=== PATIENT | male | born 1945 | race Caucasian/White ===

== ENCOUNTER 2016-08-06 13:38 | Inpatient (IN) | payer MEDICARE, OTHER ==
[~2016-08-06] VITALS: Ht 177.8 cm; Wt 137.0 kg
[2016-08-06] VITALS (8 sets, daily range): BP systolic 113–158; BP diastolic 52–88
[~2016-08-06 13:38] MED LIST: ALLO300T PO; AMLO5TAB2 PO; LOSA1TAB17 PO; METF500T4 PO; PRAV20TA2 PO; PROAIR RESPICL90 MCG IH
--- NOTE | 2016-08-06 14:34 | HP ---
ADMIT DATE: 08/06/2016 CHIEF COMPLAINT: Groin abscess. HISTORY OF PRESENT ILLNESS: A 71-year-old white male with known mild diabetes and hypertension, developed pain, swelling and redness in the right upper thigh area about 1 week prior to admission. He was seen on 07/28/2016 with minor pain in the area and told to follow up p.r.n. He was seen again on 08/03/2016 with increasing pain and was placed on doxycycline with cephalexin, but the pain has increased and swelling has increased with small amount of drainage in the medial area of the thigh and some decrease in the pain and pressure area. The area of induration and abscess was too large for outpatient local anesthetic incision and drainage and he is admitted for treatment of the upper thigh abscess. PAST HISTORY: ALLERGIES: No drugs. HOME MEDICATIONS: Include metformin for diabetes with good control, allopurinol, amlodipine, losartan, and pravastatin. He has had no significant surgeries in the past. SOCIAL HISTORY: Nonsmoker, nondrinker, , retired, physically active. FAMILY HISTORY: Unremarkable. REVIEW OF SYSTEMS: No other specific complaints. Diabetic control has been good. The most recent hemoglobin A1c being 7.1 and chemistry profile being unremarkable as well. OBJECTIVE: ENT: All within normal limits. NECK: No masses, nodes or bruits. LUNGS: Clear. CARDIOVASCULAR: Regular rate. No tachycardia or murmur. ABDOMEN: Obese, soft, benign and nontender. EXTREMITIES: There is a large indurated, mildly fluctuant area of abscess in the upper anterior medial right thigh just distal and inferior to the right inguinal fold. There is a scant amount of minimal drainage from pinpoint area of the medial thigh and has small fluctuance present. No adenopathy is noted and no other joint or skin lesions are noted. He has good distal pulses. NEUROLOGIC: Physiologic, nonfocal. GENITOURINARY AND RECTAL: Deferred. ASSESSMENT: Right proximal thigh abscess and otherwise well controlled diabetic, hypertensive. PLAN: Continue IV vancomycin and home meds with surgical consultation for incision and drainage under either general or epidural anesthesia because of the extent of the wound. SARANYA PABLO MD DR: GEOFFREY/bernarda JOB#: [id number] / [id number]
[2016-08-06] MEDS ORDERED: ASCO500T2 PO (15:05)
[2016-08-06] MEDS ORDERED: CYAN10005 PO (15:06)
[2016-08-06] MEDS ORDERED: CEPH-264 PO (15:07)
[2016-08-06] MEDS ORDERED: DOXY100C2 PO (15:07)
[2016-08-06] MEDS ORDERED: VANCOMYCIN 1.5 GM in IV NORMAL SALINE 500ML BAG 500 ML IV SCH (15:30)
[2016-08-06 15:51] LABS: BASO # 0.1 x10^3/uL (0.0-0.2); BASO % 1 % (0-3); EOS % 5 % (0-3); HEMATOCRIT 39.1 % (39.0-53.0); HEMOGLOBIN 12.8 g/dL (13.0-17.5); LYMPH # 1.6 x10^3/uL (1.0-4.8); LYMPH % 16 % (24-48); MEAN CORPUSCULAR HEMOGLOBIN 30 pg (25-35); MEAN CORPUSCULAR HGB CONC 33 g/dL (31-37); MEAN CORPUSCULAR VOLUME 91 fL (79-100); MONO % 6 % (0-9); NEUT % 72 % (31-73); PLATELET COUNT 269 x10^3/uL (140-400); RED BLOOD COUNT 4.32 x10^6/uL (4.30-5.70); RED CELL DISTRIBUTION WIDTH 13.7 % (11.5-14.5); WHITE BLOOD COUNT 10.2 x10^3/uL (4.0-11.0)
[2016-08-06] MEDS: ALLOPURINOL 300 MG TABLET. PO SCH (16:00)
[2016-08-06] MEDS: AMLODIPINE BESYLATE 5 MG TABLET PO SCH (16:00)
[2016-08-06] MEDS: LOSARTAN POTASSIUM 50 MG TABLET. PO SCH (16:00)
[2016-08-06] MEDS: ASCORBIC ACID 500 MG TABLET PO SCH (16:00)
[2016-08-06] MEDS ORDERED: VANCOMYCIN 2 GM in IV NORMAL SALINE 500ML BAG 500 ML IV ONE (16:00)
[2016-08-06] MEDS: HYDROCHLOROTHIAZIDE 25 MG TABLET PO SCH (16:00)
[2016-08-06] MEDS: CYANOCOBALAMIN (VITAMIN B-12) 1,000 MCG TABLET. PO SCH (16:00)
[2016-08-06 16:08] LABS: CALCIUM 9.2 mg/dL (8.5-10.1); CREATININE 1.2 mg/dL (0.7-1.3); GFR 59.9; POTASSIUM 3.9 mmol/L (3.5-5.1)
[2016-08-06] MEDS ORDERED: IV RINGERS,LACTATED 1000ML 1,000 ML IV SCH (16:18)
[2016-08-06] MEDS ORDERED: FENTANYL PF 100 MCG/2 ML VIAL. IV PRN (16:30)
[2016-08-06] MEDS ORDERED: ONDANSETRON PF 4 MG/2 ML VIAL. IV PRN ×2 (16:30→18:30)
[2016-08-06] MEDS ORDERED: MORPHINE SULFATE 2 MG/ML DISP.SYRIN. IV PRN (16:30)
[2016-08-06] MEDS ORDERED: HYDROMORPHONE 2 MG/ML VIAL. IV PRN ×2 (16:30→18:30)
[2016-08-06] MEDS ORDERED: LIDOCAINE 1% 1 ML SYRINGE. ID PRN (16:30)
[2016-08-06] MEDS ORDERED: PROCHLORPERAZINE 10 MG/2 ML VIAL. IV PRN (16:30)
[2016-08-06] MEDS ORDERED: SEVOFLURANE 31 TO 60 MINUTES. IH ONE (17:04)
[2016-08-06] MEDS ORDERED: LIDOCAINE 2% 100 MG/5 ML DISP.SYRIN. ONE ×2 (17:04→18:00)
[2016-08-06] MEDS ORDERED: PROPOFOL 20 ML IV ONE (17:04)
[2016-08-06] MEDS ORDERED: FENTANYL PF 100 MCG/2 ML VIAL. ONE (17:04)
[2016-08-06] MEDS: VANCOMYCIN PER PHARMACY MC PRN ×2 (17:48→20:13)
[2016-08-06] MEDS ORDERED: SURGICEL HEMOSTAT 4X8 EACH. ONE (17:54)
[2016-08-06] MEDS ORDERED: SODIUM HYPOCHLORITE 0.125% 473 ML BOTTLE. TP ONE (18:00)
--- NOTE | 2016-08-06 18:16 | PDOC ---
BRIEF OPERATIVE NOTE Date: Aug 06, 2016 Pre-Op Diagnosis right thigh abscess Post-Op Diagnosis same Procedure Performed sharp debridement of skin, and subcutaneous tissue, down to muscle, skin biopsy Surgeon Sage Anesthesia Type: General Blood Loss 50cc IV Fluid 500cc Specimens Obtained cultures, skin biopsy Findings abscess Complications none LORRI MCPHERSON MD Aug 06, 2016 18:16
[2016-08-06] MEDS: FENTANYL PF 100 MCG/2 ML VIAL. IV PRN ×2 (18:28→18:40)
[2016-08-06] MEDS ORDERED: OXYCODONE/APAP 10/325 TABLET. PO PRN (18:30)
[2016-08-06] MEDS ORDERED: DIPHENHYDRAMINE 50 MG/ML VIAL IVP PRN (19:00)
[2016-08-06] MEDS: METFORMIN 500 MG TABLET. PO SCH (20:03)
[2016-08-06] MEDS: IV DEXTROSE 5%-LACT RINGERS 1,000 ML IV SCH (20:14)
[2016-08-06] MEDS ORDERED: ATORVASTATIN CALCIUM 10 MG TABLET. PO SCH (21:00)
[2016-08-06] MEDS ORDERED: DIPHTH,PERTUSS(ACELL),TET TOX 0.5 ML DISP.SYRIN. VAX IM ONE (21:00)
[2016-08-07 03:12] VITALS: BP 143/65
[2016-08-07] MEDS: IV DEXTROSE 5%-LACT RINGERS 1,000 ML IV SCH ×2 (04:11→08:00)
[2016-08-07] MEDS: VANCOMYCIN 2 GM in IV NORMAL SALINE 500ML BAG 500 ML IV SCH ×2 (05:23→17:30)
[2016-08-07 07:00] VITALS: BP 115/76
--- NOTE | 2016-08-07 08:15 | PDOC ---
Provider Note Provider Note vss, no temp- labs ok- cult pending , was on doxy/keflex prior to surg- can dc when dr dee lazaro w/ what wound care needs to be done SARANYA APBLO MD Aug 07, 2016 08:15
[2016-08-07] MEDS: ASCORBIC ACID 500 MG TABLET PO SCH (08:24)
[2016-08-07] MEDS: METFORMIN 500 MG TABLET. PO SCH ×2 (08:25→17:29)
[2016-08-07] MEDS: HYDROCHLOROTHIAZIDE 25 MG TABLET PO SCH (08:25)
[2016-08-07] MEDS: LOSARTAN POTASSIUM 50 MG TABLET. PO SCH (08:25)
[2016-08-07] MEDS: AMLODIPINE BESYLATE 5 MG TABLET PO SCH (08:26)
[2016-08-07] MEDS: ALLOPURINOL 300 MG TABLET. PO SCH (08:26)
[2016-08-07] MEDS: CYANOCOBALAMIN (VITAMIN B-12) 1,000 MCG TABLET. PO SCH (08:26)
[2016-08-07] MEDS: ATORVASTATIN CALCIUM 10 MG TABLET. PO SCH (08:30)
--- NOTE | 2016-08-07 10:06 | PDOC ---
ASTER FARLEY BUILDING SPECIALIST 08/07/16 1006: SURGICAL PROGRESS NOTE Subjective feeling better Vital Signs Vital Signs Date Time Temp Pulse Resp B/P Pulse Ox O2 Delivery O2 Flow Rate FiO2 08/07/16 08:26 87 115/76 08/07/16 07:10 Room Air 08/07/16 07:00 98.2 20 95 98.2 08/06/16 18:28 10.0 I&O Intake and Output 08/07/16 07:00 Intake Total 3690 ml Output Total 50 ml Balance 3640 ml Intake Oral 240 ml IV Total 2325 ml Other 1125 ml Output Estimated Blood Loss 50 ml # Voids 2 General: Alert, Oriented X3, Cooperative, No acute distress Extremities: Other (right groin wound clean, packed ) Labs Laboratory Tests Test 08/06/16 15:45 08/06/16 18:16 08/06/16 20:43 08/07/16 08:05 White Blood Count 10.2x10^3/uL (4.0-11.0) Red Blood Count 4.32x10^6/uL (4.30-5.70) Hemoglobin 12.8g/dL (13.0-17.5) Hematocrit 39.1% (39.0-53.0) Mean Corpuscular Volume 91fL (79-100) Mean Corpuscular Hemoglobin 30pg (25-35) Mean Corpuscular Hemoglobin Concent 33g/dL (31-37) Red Cell Distribution Width 13.7% (11.5-14.5) Platelet Count 269x10^3/uL (140-400) Neutrophils (%) (Auto) 72% (31-73) Lymphocytes (%) (Auto) 16% (24-48) Monocytes (%) (Auto) 6% (0-9) Eosinophils (%) (Auto) 5% (0-3) Basophils (%) (Auto) 1% (0-3) Neutrophils # (Auto) 7.4x10^3uL (1.8-7.7) Lymphocytes # (Auto) 1.6x10^3/uL (1.0-4.8) Monocytes # (Auto) 0.6x10^3/uL (0.0-1.1) Eosinophils # (Auto) 0.5x10^3/uL (0.0-0.7) Basophils # (Auto) 0.1x10^3/uL (0.0-0.2) Sodium Level 144mmol/L (136-145) Potassium Level 3.9mmol/L (3.5-5.1) Chloride Level 106mmol/L (98-107) Carbon Dioxide Level 30mmol/L (21-32) Anion Gap 8 (6-14) Blood Urea Nitrogen 24mg/dL (8-26) Creatinine 1.2mg/dL (0.7-1.3) Estimated GFR (Cockcroft-Gault) 59.9 Glucose Level 143mg/dL (70-99) Calcium Level 9.2mg/dL (8.5-10.1) Glucose (Fingerstick) 119mg/dL (70-99) 163mg/dL (70-99) 133mg/dL (70-99) Laboratory Tests Test 08/06/16 15:45 08/06/16 18:16 08/06/16 20:43 08/07/16 08:05 White Blood Count 10.2x10^3/uL (4.0-11.0) Red Blood Count 4.32x10^6/uL (4.30-5.70) Hemoglobin 12.8g/dL (13.0-17.5) Hematocrit 39.1% (39.0-53.0) Mean Corpuscular Volume 91fL (79-100) Mean Corpuscular Hemoglobin 30pg (25-35) Mean Corpuscular Hemoglobin Concent 33g/dL (31-37) Red Cell Distribution Width 13.7% (11.5-14.5) Platelet Count 269x10^3/uL (140-400) Neutrophils (%) (Auto) 72% (31-73) Lymphocytes (%) (Auto) 16% (24-48) Monocytes (%) (Auto) 6% (0-9) Eosinophils (%) (Auto) 5% (0-3) Basophils (%) (Auto) 1% (0-3) Neutrophils # (Auto) 7.4x10^3uL (1.8-7.7) Lymphocytes # (Auto) 1.6x10^3/uL (1.0-4.8) Monocytes # (Auto) 0.6x10^3/uL (0.0-1.1) Eosinophils # (Auto) 0.5x10^3/uL (0.0-0.7) Basophils # (Auto) 0.1x10^3/uL (0.0-0.2) Sodium Level 144mmol/L (136-145) Potassium Level 3.9mmol/L (3.5-5.1) Chloride Level 106mmol/L (98-107) Carbon Dioxide Level 30mmol/L (21-32) Anion Gap 8 (6-14) Blood Urea Nitrogen 24mg/dL (8-26) Creatinine 1.2mg/dL (0.7-1.3) Estimated GFR (Cockcroft-Gault) 59.9 Glucose Level 143mg/dL (70-99) Calcium Level 9.2mg/dL (8.5-10.1) Glucose (Fingerstick) 119mg/dL (70-99) 163mg/dL (70-99) 133mg/dL (70-99) Problem List s/p debridement right thigh abscess wound care to see for wound assessment, packing needs daily Problems: LORRI MCPHERSON MD 08/07/16 1338: SURGICAL PROGRESS NOTE Assessment/Plan pt seen and examined area of erythema outlined yesterday in OR has already improved continue wound [facility] when able to take PO abx Problems: ASTER FARLEY APRN Aug 07, 2016 10:06 LORRI MCPHERSON MD Aug 07, 2016 13:38
[2016-08-07 11:00] VITALS: BP 140/77
[2016-08-07 15:00] VITALS: BP 154/80
--- NOTE | 2016-08-07 17:54 | OP ---
DATE OF SURGERY: 08/06/2016 PREOPERATIVE DIAGNOSIS: Right thigh abscess. POSTOPERATIVE DIAGNOSIS: Right thigh abscess. PROCEDURE: Sharp debridement on the skin and subcutaneous tissue down to muscle, skin biopsy. SURGEON: Lorri Mcpherson M.D. ANESTHESIA: General. ESTIMATED BLOOD LOSS: 50 mL. IV FLUIDS: 500 mL. INDICATIONS: The patient is a morbidly obese male who presents with pain, erythema, induration and drainage from the upper medial aspect of his right thigh. He is brought for debridement. DESCRIPTION OF PROCEDURE: The patient brought to the operating suite, given a general anesthetic and placed in dorsal lithotomy position and the right thigh, scrotum, and the perineal area were prepped and draped in usual sterile fashion. A 16 gauge needle was used as a seeker to identify the pus filled abscess cavity and then an incision was made and the cavity evacuated with suction. Cultures were made. A skin biopsy was harvested. The incision was extended along the entirety of the abscess cavity to allow adequate debridement. Skin and subcutaneous tissue was sharply removed down to the muscle. The wound was then irrigated with a pulse sueding machine operator. Hemostasis obtained with 3-0 Vicryl stick tie and cautery. Once hemostasis was obtained, the wound was dressed with a piece of Surgicel and vaginal packing soaked in quarter percent ____ solution. Sterile dressing applied. The patient taken out of the lithotomy position, awakened from his anesthetic and taken to the recovery room in satisfactory condition. LORRI MCPHERSON MD DR: ALESHA/bernarda JOB#: [id number] / [id number]
[2016-08-07 19:00] VITALS: BP 126/71
[2016-08-07 23:08] VITALS: BP 142/67
[2016-08-08 03:00] VITALS: BP 149/77
[2016-08-08] MEDS: VANCOMYCIN 2 GM in IV NORMAL SALINE 500ML BAG 500 ML IV SCH ×2 (06:29→18:11)
[2016-08-08] MEDS: VANCOMYCIN PER PHARMACY MC PRN (06:31)
[2016-08-08 07:00] VITALS: BP 153/72
[2016-08-08] MEDS: ASCORBIC ACID 500 MG TABLET PO SCH (09:22)
[2016-08-08] MEDS: HYDROCHLOROTHIAZIDE 25 MG TABLET PO SCH (09:22)
[2016-08-08] MEDS: LOSARTAN POTASSIUM 50 MG TABLET. PO SCH (09:22)
[2016-08-08] MEDS: CYANOCOBALAMIN (VITAMIN B-12) 1,000 MCG TABLET. PO SCH (09:23)
[2016-08-08] MEDS: ATORVASTATIN CALCIUM 10 MG TABLET. PO SCH (09:23)
[2016-08-08] MEDS: ALLOPURINOL 300 MG TABLET. PO SCH (09:23)
[2016-08-08] MEDS: AMLODIPINE BESYLATE 5 MG TABLET PO SCH (09:23)
[2016-08-08] MEDS: METFORMIN 500 MG TABLET. PO SCH ×2 (09:23→18:10)
--- NOTE | 2016-08-08 10:21 | PDOC ---
Provider Note Provider Note POD 2 no c/o wound vac on no new recs LORRI MCPHERSON MD Aug 08, 2016 10:21
[2016-08-08 11:00] VITALS: BP 144/74
[2016-08-08 15:00] VITALS: BP 165/81
--- NOTE | 2016-08-08 15:46 | PDOC ---
GENERAL General: vss and afebrile. sugars good. bmp and cbc ok at admit. gram stain with only rbc's. surgical notes reviewed. surgery help appreciated. growth of staph aureus on culture. await final sensitivities. cont same. Problems: VITAL SIGNS Vital Signs: Vital Signs Date Time Temp Pulse Resp B/P Pulse Ox O2 Delivery O2 Flow Rate FiO2 08/08/16 11:00 98.0 86 16 144/74 95 Room Air 98.0 I & O I & O Intake and Output 08/08/16 07:00 Intake Total 720 ml Balance 720 ml Intake Oral 720 ml # Voids 2 ALLERGIES Allergies: Allergies Coded Allergies Type Severity Reaction Last Updated Verified No Known Drug Allergies 08/06/16 No MEDS Medications: Current Medications Medications (Trade) Dose Ordered Sig/Stephanie Start Time Stop Time Status Last Admin Dose Admin Allopurinol (Zyloprim) 300 mg DAILY 08/06/16 16:00 08/08/16 09:23 300 MG Amlodipine Besylate (Norvasc) 2.5 mg DAILY 08/06/16 16:00 08/08/16 09:23 2.5 MG Ascorbic Acid (Vitamin C) 500 mg DAILY 08/06/16 16:00 08/08/16 09:22 500 MG Atorvastatin Calcium (Lipitor) 5 mg DAILY 08/07/16 09:00 08/08/16 09:23 5 MG Atorvastatin Calcium 5 mg 5 mg QHS 08/06/16 21:00 08/06/16 21:16 DC Cellulose 1 each STK-MED ONCE 08/06/16 17:54 08/06/16 17:55 DC 08/06/16 17:42 1 EACH Cyanocobalamin (Vitamin B-12) 1,000 mcg DAILY 08/06/16 16:00 08/08/16 09:23 1,000 MCG Dextrose/Lactated Ringer's (Iv D5%-Lr) 1,000 ml @ 125 mls/hr Q8H 08/06/16 16:00 08/07/16 08:12 DC 08/07/16 04:11 125 MLS/HR Diphenhydramine HCl 25 mg 25 mg 1X PACU PRN 08/06/16 19:00 08/08/16 13:02 DC 08/06/16 18:52 25 MG Diphtheria/ Tetanus/Acell Pertussis (Boostrix) 0.5 ml ONCE ONCE 08/06/16 21:00 08/06/16 21:01 DC 08/06/16 21:11 0.5 ML Fentanyl Citrate (Fentanyl 2ml Vial) 100 mcg STK-MED ONCE 08/06/16 17:04 08/06/16 17:05 DC Hydrochlorothiazide (Hydrodiuril) 25 mg DAILY 08/06/16 16:00 08/08/16 09:22 25 MG Hydromorphone HCl (Dilaudid) 1 mg PRN Q3HRS PRN 08/06/16 18:30 08/07/16 16:23 1 MG Lactated Ringer's (Iv Lactated Ringers) 1,000 ml @ 30 mls/hr Q24H 08/06/16 16:18 08/07/16 04:17 DC 08/06/16 16:56 30 MLS/HR Lidocaine HCl 100 mg STK-MED ONCE 08/06/16 18:00 08/06/16 18:01 DC Losartan Potassium (Cozaar) 100 mg DAILY 08/06/16 16:00 08/08/16 09:22 100 MG Metformin HCl (Glucophage) 1,000 mg BIDWMEALS 08/06/16 17:00 08/08/16 09:23 1,000 MG Morphine Sulfate 1 mg 1 mg PRN Q10MIN PRN 08/06/16 16:30 08/06/16 22:00 DC Ondansetron HCl (Zofran) 4 mg PRN Q6HRS PRN 08/06/16 18:30 Oxycodone/ Acetaminophen (Percocet 10/325) 1 tab PRN Q4HRS PRN 08/06/16 18:30 Prochlorperazine Edisylate (Compazine) 5 mg PACU PRN PRN 08/06/16 16:30 08/06/16 22:00 DC Propofol (Diprivan) 20 ml @ As Directed STK-MED ONCE 08/06/16 17:04 08/06/16 17:05 DC Sevoflurane 30 ml 30 ml STK-MED ONCE 08/06/16 17:04 08/06/16 17:05 DC Sodium Hypochlorite (Dakin'S 1/4 Strength) 1 dionna ONCE ONCE 08/06/16 18:00 08/06/16 18:01 DC 08/06/16 17:42 1 DIONNA Vancomycin HCl 1 each 1X ONCE 08/08/16 05:00 08/08/16 05:01 DC 08/08/16 05:00 1 EACH Vancomycin HCl (Vanco Per Pharmacy) 1 each PRN DAILY PRN 08/06/16 15:45 08/08/16 06:31 1 EACH Vancomycin HCl/ Sodium Chloride (Iv Sodium Chloride 0.9% 500ml Bag) 500 ml @ 250 mls/hr Q12H 08/07/16 05:30 08/08/16 06:29 250 MLS/HR LAB Lab: Laboratory Tests Test 08/07/16 16:55 08/07/16 20:43 08/08/16 04:45 08/08/16 07:34 Glucose (Fingerstick) 150mg/dL (70-99) 124mg/dL (70-99) 149mg/dL (70-99) Vancomycin Level Trough 17.7mcg/mL (10.0-20.0) Vancomycin Last Dose Date 08/07/16 Vancomycin Last Dose Time 1830 Test 08/08/16 10:54 Glucose (Fingerstick) 156mg/dL (70-99) NAOMIE CHESTER MD Aug 08, 2016 15:46
[2016-08-08 19:00] VITALS: BP 166/79
[2016-08-08 23:00] VITALS: BP 169/87
[2016-08-09 03:00] VITALS: BP 145/77
[2016-08-09] MEDS: VANCOMYCIN 2 GM in IV NORMAL SALINE 500ML BAG 500 ML IV SCH (05:11)
[2016-08-09 07:00] VITALS: BP 158/84
[2016-08-09] MEDS: HYDROCHLOROTHIAZIDE 25 MG TABLET PO SCH (08:13)
[2016-08-09] MEDS: ALLOPURINOL 300 MG TABLET. PO SCH (08:13)
[2016-08-09] MEDS: LOSARTAN POTASSIUM 50 MG TABLET. PO SCH (08:13)
[2016-08-09] MEDS: ASCORBIC ACID 500 MG TABLET PO SCH (08:13)
[2016-08-09] MEDS: CYANOCOBALAMIN (VITAMIN B-12) 1,000 MCG TABLET. PO SCH (08:13)
[2016-08-09] MEDS: METFORMIN 500 MG TABLET. PO SCH ×2 (08:13→16:52)
[2016-08-09] MEDS: AMLODIPINE BESYLATE 5 MG TABLET PO SCH (08:14)
[2016-08-09] MEDS: ATORVASTATIN CALCIUM 10 MG TABLET. PO SCH (08:14)
[2016-08-09 11:00] VITALS: BP 147/89
--- NOTE | 2016-08-09 11:20 | PDOC ---
GENERAL General: vss and afebrile. leg feeling better other than discomfort of wound vac. mrsa on cultures and will transition patient to po bactrim. will need home health wound care at [place]. Problems: VITAL SIGNS Vital Signs: Vital Signs Date Time Temp Pulse Resp B/P Pulse Ox O2 Delivery O2 Flow Rate FiO2 08/09/16 11:00 98.1 83 18 147/89 97 Room Air 98.1 I & O I & O Intake and Output 08/09/16 07:00 Intake Total 240 ml Balance 240 ml Intake Oral 240 ml # Voids 3 ALLERGIES Allergies: Allergies Coded Allergies Type Severity Reaction Last Updated Verified No Known Drug Allergies 08/06/16 No MEDS Medications: Current Medications Medications (Trade) Dose Ordered Sig/Stephanie Start Time Stop Time Status Last Admin Dose Admin Allopurinol (Zyloprim) 300 mg DAILY 08/06/16 16:00 08/09/16 08:13 300 MG Amlodipine Besylate (Norvasc) 2.5 mg DAILY 08/06/16 16:00 08/09/16 08:14 2.5 MG Ascorbic Acid (Vitamin C) 500 mg DAILY 08/06/16 16:00 08/09/16 08:13 500 MG Atorvastatin Calcium (Lipitor) 5 mg DAILY 08/07/16 09:00 08/09/16 08:14 5 MG Atorvastatin Calcium 5 mg 5 mg QHS 08/06/16 21:00 08/06/16 21:16 DC Cellulose 1 each STK-MED ONCE 08/06/16 17:54 08/06/16 17:55 DC 08/06/16 17:42 1 EACH Cyanocobalamin (Vitamin B-12) 1,000 mcg DAILY 08/06/16 16:00 08/09/16 08:13 1,000 MCG Dextrose/Lactated Ringer's (Iv D5%-Lr) 1,000 ml @ 125 mls/hr Q8H 08/06/16 16:00 08/07/16 08:12 DC 08/07/16 04:11 125 MLS/HR Diphenhydramine HCl 25 mg 25 mg 1X PACU PRN 08/06/16 19:00 08/08/16 13:02 DC 08/06/16 18:52 25 MG Diphtheria/ Tetanus/Acell Pertussis (Boostrix) 0.5 ml ONCE ONCE 08/06/16 21:00 08/06/16 21:01 DC 08/06/16 21:11 0.5 ML Fentanyl Citrate (Fentanyl 2ml Vial) 100 mcg STK-MED ONCE 08/06/16 17:04 08/06/16 17:05 DC Hydrochlorothiazide (Hydrodiuril) 25 mg DAILY 08/06/16 16:00 08/09/16 08:13 25 MG Hydromorphone HCl (Dilaudid) 1 mg PRN Q3HRS PRN 08/06/16 18:30 08/07/16 16:23 1 MG Lactated Ringer's (Iv Lactated Ringers) 1,000 ml @ 30 mls/hr Q24H 08/06/16 16:18 08/07/16 04:17 DC 08/06/16 16:56 30 MLS/HR Lidocaine HCl 100 mg STK-MED ONCE 08/06/16 18:00 08/06/16 18:01 DC Losartan Potassium (Cozaar) 100 mg DAILY 08/06/16 16:00 08/09/16 08:13 100 MG Metformin HCl (Glucophage) 1,000 mg BIDWMEALS 08/06/16 17:00 08/09/16 08:13 1,000 MG Morphine Sulfate 1 mg 1 mg PRN Q10MIN PRN 08/06/16 16:30 08/06/16 22:00 DC Ondansetron HCl (Zofran) 4 mg PRN Q6HRS PRN 08/06/16 18:30 Oxycodone/ Acetaminophen (Percocet 10/325) 1 tab PRN Q4HRS PRN 08/06/16 18:30 Prochlorperazine Edisylate (Compazine) 5 mg PACU PRN PRN 08/06/16 16:30 08/06/16 22:00 DC Propofol (Diprivan) 20 ml @ As Directed STK-MED ONCE 08/06/16 17:04 08/06/16 17:05 DC Sevoflurane 30 ml 30 ml STK-MED ONCE 08/06/16 17:04 08/06/16 17:05 DC Sodium Hypochlorite (Dakin'S 1/4 Strength) 1 dionna ONCE ONCE 08/06/16 18:00 08/06/16 18:01 DC 08/06/16 17:42 1 DIONNA Vancomycin HCl 1 each 1X ONCE 08/08/16 05:00 08/08/16 05:01 DC 08/08/16 05:00 1 EACH Vancomycin HCl (Vanco Per Pharmacy) 1 each PRN DAILY PRN 08/06/16 15:45 08/08/16 06:31 1 EACH Vancomycin HCl/ Sodium Chloride (Iv Sodium Chloride 0.9% 500ml Bag) 500 ml @ 250 mls/hr Q12H 08/07/16 05:30 08/09/16 05:11 250 MLS/HR LAB Lab: Laboratory Tests Test 08/08/16 16:17 08/08/16 20:49 08/09/16 07:11 08/09/16 11:06 Glucose (Fingerstick) 126mg/dL (70-99) 118mg/dL (70-99) 131mg/dL (70-99) 153mg/dL (70-99) NAOMIE CHESTER MD Aug 09, 2016 11:20
--- NOTE | 2016-08-09 11:32 | PDOC ---
Provider Note Provider Note SURG POD 3 no new c/o vac in place continue wound care LORRI MCPHERSON MD Aug 09, 2016 11:32
[2016-08-09 15:00] VITALS: BP 146/77
[2016-08-09 19:00] VITALS: BP 163/81
[2016-08-09] MEDS: SMZ/TMP 800/160MG TABLET. PO SCH (20:32)
[2016-08-09 23:00] VITALS: BP 152/87
[2016-08-10 03:00] VITALS: BP 134/79
[2016-08-10 07:00] VITALS: BP 147/87
--- NOTE | 2016-08-10 08:41 | DISCH ---
DISCHARGE CONDITION ON DISCHARGE: Stable HOME HEALTH: Yes PT. HAS FUNCTIONAL LIMITATIONS: Yes FACE TO FACE ENCOUNTER: Yes POST DISCHARGE ORDERS ACTIVITY ORDERS: No restrictions DIET AFTER DISCHARGE: Regular FOLLOW-UP PHYSICIAN FOLLOW-UP: per SARANYA Soto MD Aug 10, 2016 08:41
[2016-08-10] MEDS: SMZ/TMP 800/160MG TABLET. PO SCH ×2 (08:43→20:59)
[2016-08-10] MEDS: ASCORBIC ACID 500 MG TABLET PO SCH (08:43)
[2016-08-10] MEDS: HYDROCHLOROTHIAZIDE 25 MG TABLET PO SCH (08:43)
[2016-08-10] MEDS: METFORMIN 500 MG TABLET. PO SCH ×2 (08:43→17:05)
[2016-08-10] MEDS: ALLOPURINOL 300 MG TABLET. PO SCH (08:43)
[2016-08-10] MEDS: LOSARTAN POTASSIUM 50 MG TABLET. PO SCH (08:44)
[2016-08-10] MEDS: AMLODIPINE BESYLATE 5 MG TABLET PO SCH (08:45)
[2016-08-10] MEDS: CYANOCOBALAMIN (VITAMIN B-12) 1,000 MCG TABLET. PO SCH (08:45)
[2016-08-10] MEDS: ATORVASTATIN CALCIUM 10 MG TABLET. PO SCH (08:45)
--- NOTE | 2016-08-10 08:45 | PDOC ---
Provider Note Provider Note [id number] SARANYA PABLO MD Aug 10, 2016 08:45
--- NOTE | 2016-08-10 09:13 | PDOC ---
ASTER FARLEY APRN 08/10/16 0913: SURGICAL PROGRESS NOTE Subjective doing well no complaints Vital Signs Vital Signs Date Time Temp Pulse Resp B/P Pulse Ox O2 Delivery O2 Flow Rate FiO2 08/10/16 08:45 76 147/87 08/10/16 07:00 97.7 18 95 Room Air 97.7 I&O Intake and Output 08/10/16 07:00 Intake Total 120 ml Balance 120 ml Intake Oral 120 ml # Voids 7 # Bowel Movements 2 General: Alert, Oriented X3, Cooperative, No acute distress Extremities: Other (wound vac to groin) Labs Laboratory Tests Test 08/08/16 10:54 08/08/16 16:17 08/08/16 20:49 08/09/16 07:11 Glucose (Fingerstick) 156mg/dL (70-99) 126mg/dL (70-99) 118mg/dL (70-99) 131mg/dL (70-99) Test 08/09/16 11:06 08/09/16 16:06 08/09/16 20:29 08/10/16 07:29 Glucose (Fingerstick) 153mg/dL (70-99) 120mg/dL (70-99) 151mg/dL (70-99) 118mg/dL (70-99) Laboratory Tests Test 08/09/16 11:06 08/09/16 16:06 08/09/16 20:29 08/10/16 07:29 Glucose (Fingerstick) 153mg/dL (70-99) 120mg/dL (70-99) 151mg/dL (70-99) 118mg/dL (70-99) Problem List wound vac waiting for home vac arrangements Problems: LORRI MCPHERSON MD 08/10/16 1539: SURGICAL PROGRESS NOTE Assessment/Plan agree with above Problems: ASTER FARLEY APRN Aug 10, 2016 09:13 LORRI MCPHERSON MD Aug 10, 2016 15:39
[2016-08-10 11:00] VITALS: BP 159/101
--- NOTE | 2016-08-10 13:23 | PATHOLOGY ---
PATHOLOGY REPORT * * * * * * * * FINAL DIAGNOSIS: Skin and subcutaneous tissue, right thigh: - Abscess. COMMENT: There is no evidence of malignancy. (JPM:csd; d/t: 08/10/2016) REPORT ELECTRONICALLY SIGNED BY: Romel Diaz M.D. DATE/TIME: 08/10/2016 13:21 * * * * * * * * GROSS PATHOLOGY: The specimen is received in formalin labeled "Sal Bueno, right thigh skin and subcutaneous tissue". Received is an ellipse of dusky perera-robles skin with attached white-robles fibroadipose tissue measuring 4.5 x 2.6 x 3.4 cm in greatest dimensions. Sectioning reveals a yellow-robles to pink-perera soft cut surface. The specimen is submitted representatively in cassette A1. (CAA; 08/07/2016) INITIAL CPT CODE(S): A; 38585 Professional services performed by [facility] [place] [address] Technical services performed by [facility] at [address] [place] [address]. SPECIMEN(S) RECEIVED: A.Right thigh skin and subcutaneous tissue CLINICAL HISTORY: Right thigh abscess PATIENT: SAL BUENO /AGE: 1002/25/1945 (Age: 71) PATIENT #: [id number] ALT CASE #: SPECIMEN COLLECTION DATE: 08/06/2016 SPECIMEN RECEIVED DATE: 08/07/2016 [facility] - [address] [place] [address] - PHONE: [phone] * * * END OF REPORT * * *
[2016-08-10 15:00] VITALS: BP 154/79
--- NOTE | 2016-08-10 18:40 | DS ---
DATE OF DISCHARGE: 08/10/2016 HOSPITAL SUMMARY: The patient came in with a large right proximal and medial thigh abscess which Dr. Cazares took to surgery with the incision and drainage performed. CBC and chemistry profile were unremarkable, and wound culture grew out MRSA, sensitive to Bactrim and tetracycline. Blood cultures had no growth. He was treated with IV vancomycin followed by oral Bactrim, and wound VAC has been applied, and he is comfortable to be followed as an outpatient as soon as home health could be arranged with the wound VAC. FINAL DIAGNOSIS: Right inguinal abscess secondary to Methicillin-resistant Staphylococcus aureus. OPERATIONS AND PROCEDURES: Incision and drainage. COMPLICATIONS: None. CONSULTATIONS: Dr. Cazares. DISPOSITION: Bactrim DS one tablet twice a day for 5 more days. Rest of home medications remain the same. Ibuprofen as needed for pain. Activity as tolerated. Wound VAC in place and follow up with Dr. Cazares in 1 week, and I will see on a p.r.n. basis. SARANYA PABLO MD DR: GEOFFREY/nts JOB#: [id number] / [id number]
[2016-08-10 19:30] VITALS: BP 150/76
[2016-08-10 23:05] VITALS: BP 119/69
[2016-08-11 03:02] VITALS: BP 129/72
[2016-08-11 07:00] VITALS: BP 139/73
[2016-08-11] MEDS: ASCORBIC ACID 500 MG TABLET PO SCH (09:05)
[2016-08-11] MEDS: CYANOCOBALAMIN (VITAMIN B-12) 1,000 MCG TABLET. PO SCH (09:05)
[2016-08-11] MEDS: METFORMIN 500 MG TABLET. PO SCH (09:06)
[2016-08-11] MEDS: HYDROCHLOROTHIAZIDE 25 MG TABLET PO SCH (09:06)
[2016-08-11] MEDS: LOSARTAN POTASSIUM 50 MG TABLET. PO SCH (09:06)
[2016-08-11] MEDS: ATORVASTATIN CALCIUM 10 MG TABLET. PO SCH (09:06)
[2016-08-11] MEDS: ALLOPURINOL 300 MG TABLET. PO SCH (09:08)
[2016-08-11] MEDS: AMLODIPINE BESYLATE 5 MG TABLET PO SCH (09:08)
[2016-08-11] MEDS: SMZ/TMP 800/160MG TABLET. PO SCH (09:08)
[2016-08-11 11:00] VITALS: BP 153/76
--- NOTE | 2016-08-11 11:34 | PDOC ---
ASTER FARLEY APRN 08/11/16 1134: SURGICAL PROGRESS NOTE Subjective tolerating diet wound vac arranged Vital Signs Vital Signs Date Time Temp Pulse Resp B/P Pulse Ox O2 Delivery O2 Flow Rate FiO2 08/11/16 11:00 98.1 77 20 153/76 94 Room Air 98.1 I&O Intake and Output 08/11/16 07:00 Intake Total 630 ml Output Total 500 ml Balance 130 ml Intake Oral 630 ml Output Urine Total 500 ml # Voids 8 General: Alert, Oriented X3, Cooperative, No acute distress Extremities: Other (right groin wound vac in place) Labs Laboratory Tests Test 08/09/16 16:06 08/09/16 20:29 08/10/16 07:29 08/10/16 11:18 Glucose (Fingerstick) 120mg/dL (70-99) 151mg/dL (70-99) 118mg/dL (70-99) 132mg/dL (70-99) Test 08/10/16 16:43 08/10/16 20:50 08/11/16 07:42 Glucose (Fingerstick) 113mg/dL (70-99) 119mg/dL (70-99) 119mg/dL (70-99) Laboratory Tests Test 08/10/16 16:43 08/10/16 20:50 08/11/16 07:42 Glucose (Fingerstick) 113mg/dL (70-99) 119mg/dL (70-99) 119mg/dL (70-99) Problem List continue vac will fu in wound clinic with Dr Mcpherson Problems: LORRI MCPHERSON MD 08/11/16 1305: SURGICAL PROGRESS NOTE Assessment/Plan pt seen and examined agree with plan will f/u in the wound clinic Problems: ASTER FARLEY APRN Aug 11, 2016 11:34 LORRI MCPHERSON MD Aug 11, 2016 13:05
== END 2016-08-11 13:50 | disposition home health service (06) | DRG 580 ==
LOC: 4 NORTH 13:55
PROVIDERS: ADMIT Family Medicine; ATTEND Family Medicine
PROC: 0HBHXZX Excision of Right Upper Leg Skin, External Approach, Diagnostic (ICD-10-PCS; 2016-08-06)
PROC: 0KBQ0ZZ Excision of Right Upper Leg Muscle, Open Approach (ICD-10-PCS; principal; 2016-08-06 16:30)
DX: L02.415 Cutaneous abscess of right lower limb (principal); Z68.41 Body mass index [BMI] 40.0-44.9, adult; E11.9 Type 2 diabetes mellitus without complications; E66.01 Morbid (severe) obesity due to excess calories; I10 Essential (primary) hypertension; B95.62 Methicillin resistant Staphylococcus aureus infection as the cause of diseases classified elsewhere
CPT/HCPCS: 36415; 80048; 80202; 82947; 85027; 87040; 87071; 87075; 87205; 88304; 90715; J1170; J1200; J2704; J3010; J3370; J7030; J7040; J7120; 97606

== ENCOUNTER → 2016-08-19 | Outpatient (CLI) | payer MEDICARE, OTHER ==
[2016-08-11 11:00] VITALS: BP 153/76
[~2016-08-19] MED LIST changes: +ASCO500T2 PO; +CEPH-264 PO; +CYAN10005 PO; +DOXY100C2 PO
== END | disposition home or self-care (01) ==
LOC: PMGWOUND 12:59
PROVIDERS: ATTEND Surgery
DX: T81.89XD Other complications of procedures, not elsewhere classified, subsequent encounter (principal); L02.214 Cutaneous abscess of groin; L03.115 Cellulitis of right lower limb; Z87.891 Personal history of nicotine dependence; Z72.89 Other problems related to lifestyle; Y83.8 Other surgical procedures as the cause of abnormal reaction of the patient, or of later complication, without mention of misadventure at the time of the procedure
CPT/HCPCS: 11042; 97605

== ENCOUNTER → 2016-08-26 | Outpatient (CLI) | payer MEDICARE, OTHER ==
[2016-08-11 11:00] VITALS: BP 153/76
== END | disposition home or self-care (01) ==
LOC: PMGWOUND 12:36
PROVIDERS: ATTEND Surgery
DX: T81.89XD Other complications of procedures, not elsewhere classified, subsequent encounter (principal); L02.214 Cutaneous abscess of groin; L03.115 Cellulitis of right lower limb; Z87.891 Personal history of nicotine dependence; Y83.8 Other surgical procedures as the cause of abnormal reaction of the patient, or of later complication, without mention of misadventure at the time of the procedure
CPT/HCPCS: 99214

== ENCOUNTER → 2016-09-02 | Outpatient (CLI) | payer MEDICARE, OTHER ==
[2016-08-11 11:00] VITALS: BP 153/76
== END | disposition home or self-care (01) ==
LOC: PMGWOUND 13:10
PROVIDERS: ATTEND Surgery
DX: T81.89XD Other complications of procedures, not elsewhere classified, subsequent encounter (principal); L02.214 Cutaneous abscess of groin; L03.115 Cellulitis of right lower limb; Z72.89 Other problems related to lifestyle; Z87.891 Personal history of nicotine dependence; Y83.8 Other surgical procedures as the cause of abnormal reaction of the patient, or of later complication, without mention of misadventure at the time of the procedure
CPT/HCPCS: 17250

== ENCOUNTER → 2016-09-16 | Outpatient (CLI) | payer MEDICARE, OTHER | END | disposition home or self-care (01) | LOC: PMGWOUND 12:56 | PROVIDERS: ATTEND Surgery | DX: T81.89XD Other complications of procedures, not elsewhere classified, subsequent encounter (principal); L03.115 Cellulitis of right lower limb; Z87.891 Personal history of nicotine dependence; Z72.89 Other problems related to lifestyle; Y83.8 Other surgical procedures as the cause of abnormal reaction of the patient, or of later complication, without mention of misadventure at the time of the procedure | CPT/HCPCS: 99214 ==

== ENCOUNTER → 2017-04-12 | Outpatient (CLI) | payer MEDICARE, OTHER ==
[~2017-04-12] MED LIST changes: -LOSA1TAB17 PO; +LOSA1TAB22 PO
--- NOTE | 2017-04-12 12:30 | KCIC ---
CT chest without contrast History: Lung nodule follow-up. Asthma. 30 year smoking history.. Technique: No intravenous contrast per request. Multiplanar reformatted images were obtained. Comparison: June 30, 2016. Exposure: One or more of the following individualized dose reduction techniques were utilized for this examination: 1. Automated exposure control 2. Adjustment of the mA and/or kV according to patient size 3. Use of iterative reconstruction technique. Findings: Vascular structures: Limited exam without contrast.No evidence of thoracic aortic aneurysm. Lymph nodes: Small axillary lymph nodes are stable since prior. Small mediastinal lymph nodes are again identified and have not changed since prior. Thyroid gland:Visualized aspect is unremarkable. Heart: Mild coronary calcification. Pleural spaces: No significant effusion Lungs: Multiple pulmonary nodules in the right lung are unchanged since prior study. There is a small nodule in the posterior aspect of the left upper lobe, abutting the major fissure measures 3 mm, and measures subtly larger than on the prior study. This difference could just be due to a difference in slice location however. Other small left pulmonary nodules are stable. No new dominant mass is identified. Trachea and central airways: Patent Bones: No destructive process Upper abdomen: Slices obtained through the upper most abdomen are limited by the noncontrast technique. There is a partially visualized lobulated lesion arising from the left kidney, appears roughly similar to the prior examination. Impression: 1. Tiny 3 mm pulmonary nodule in the left upper lobe may be minimally larger, but this difference is subtle. Other multiple bilateral pulmonary nodules are stable. 2. No evidence of acute abnormality. 3. The lesion arising from the left kidney is only partially seen. If this has not been worked up recently, ultrasound could further evaluate. Electronically signed by: Jitendra Boyle MD (04/12/2017 12:26 PM) [id number]
== END | disposition home or self-care (01) ==
LOC: KCIC CT 10:08
PROVIDERS: ATTEND Internal Medicine Critical Care Medicine
DX: R91.8 Other nonspecific abnormal finding of lung field (principal); J45.909 Unspecified asthma, uncomplicated; Z87.891 Personal history of nicotine dependence
CPT/HCPCS: 71250

== ENCOUNTER → 2017-07-13 | Outpatient (CLI) | payer MEDICARE, OTHER | END | disposition home or self-care (01) | LOC: KCIC 14:08 | DX: R05 Cough (principal); R06.02 Shortness of breath; R06.2 Wheezing; M47.9 Spondylosis, unspecified | CPT/HCPCS: 71046 ==

== ENCOUNTER → 2018-08-22 | Outpatient (CLI) | payer MEDICARE, OTHER ==
[~2018-08-22] MED LIST changes: +AMLO5TAB10 PO; -AMLO5TAB2 PO; +METF500T16 PO; -METF500T4 PO
--- NOTE | 2018-08-22 12:03 | CARD ---
MR#: [id number] Date of Study: 08/22/2018 Ordering Physician: ANGEL STAPLES, Referring Physician: ANGEL STAPLES, Tech: Ana Mckeon RDCS APPROVED REPORT EXAM: Two-dimensional and M-mode echocardiogram with Doppler and color Doppler. Other Information Quality : Fair INDICATION Systolic Murmur 2D DIMENSIONS RVDd2.6 (2.9-3.5cm)Left Atrium(2D)4.3 (1.6-4.0cm) IVSd1.4 (0.7-1.1cm)Aortic Root(2D)3.3 (2.0-3.7cm) LVDd4.6 (3.9-5.9cm)LVOT Diameter2.2 (1.8-2.4cm) PWd1.4 (0.7-1.1cm)LVDs2.3 (2.5-4.0cm) FS (%) 30.0 %SV77.8 ml LVEF(%)60.0 (>50%) Aortic Valve AoV Peak Ed.221.3cm/sAoV VTI42.6cm AO Peak GR.19.6mmHgLVOT Peak Ed.137.1cm/s AO Mean GR.11mmHgAVA (VMAX)2.40cm2 AMBREEN (VTI)2.80cm2 Mitral Valve MV E Qyzrkmzo52.5cm/sMV DECEL WNML528zl MV A Ecvtjipr720.6cm/sE/A Ratio0.9 Tricuspid Valve TR P. Mpsvxxry131pa/sRAP LQUAETNL6moBu TR Peak Gr.01ohFzYDFD11mbOy Pulmonary Vein S1 Eyjkjthv21.5cm/sD2 Zlaoybct50.4cm/s LEFT VENTRICLE The left ventricle is normal size. There is mild concentric left ventricular hypertrophy. The left ve ntricular systolic function is normal. The Ejection Fraction is 60-65%. There is normal LV segmental wall motion. Transmitral Doppler flow pattern is Grade I-abnormal relaxation pattern. RIGHT VENTRICLE The right ventricle is normal size. The right ventricular systolic function is normal. ATRIA The left atrium is mildly dilated. The right atrium size is normal. The interatrial septum is intact with no evidence for an atrial septal defect or patent foramen ovale as noted on 2-D or Doppler imagi ng. AORTIC VALVE The aortic valve is calcified but opens well. Doppler and Color Flow revealed no significant aortic r egurgitation. There is no significant aortic valvular stenosis. MITRAL VALVE The mitral valve is normal in structure and function. There is no evidence of mitral valve prolapse. There is no mitral valve stenosis. Doppler and Color Flow revealed no mitral valve regurgitation note d. TRICUSPID VALVE The tricuspid valve is normal in structure and function. Doppler and Color Flow revealed trace tricus pid regurgitation. The PA pressure was estimated at 20 mmHg. There is no tricuspid valve stenosis. PULMONIC VALVE The pulmonic valve is not well visualized. Doppler and Color Flow revealed mild pulmonic valvular reg urgitation. There is no pulmonic valvular stenosis. GREAT VESSELS The aortic root is normal in size. The ascending aorta is normal in size. The IVC is normal in size a nd collapses >50% with inspiration. PERICARDIAL EFFUSION There is no evidence of significant pericardial effusion. Critical Notification Critical Value: No <Conclusion> The left ventricular systolic function is normal. The Ejection Fraction is 60-65%. There is normal LV segmental wall motion. Transmitral Doppler flow pattern is Grade I-abnormal relaxation pattern. Doppler and Color Flow revealed trace tricuspid regurgitation. The PA pressure was estimated at 20 mmHg. There is no evidence of significant pericardial effusion. Signed by : Bashir Sigala, Electronically Approved : 08/22/2018 12:02:52
== END | disposition home or self-care (01) ==
LOC: ECHO 10:48
PROVIDERS: ATTEND Physician Assistant Medical
DX: I37.1 Nonrheumatic pulmonary valve insufficiency (principal); I51.7 Cardiomegaly
CPT/HCPCS: 93306

== ENCOUNTER → 2019-06-02 | Outpatient (CLI) | payer MEDICARE ==
[~2019-06-02] MED LIST changes: +CYAN-25 PO; -CYAN10005 PO
--- NOTE | 2019-06-02 17:12 | KCIC ---
Three-view right knee study Clinical indications: Right knee pain. FINDINGS: There is moderate to severe joint space narrowing and mild spurring of the medial tibiofemoral joint compartment. Mild joint space narrowing of the lateral tibiofemoral joint compartment is seen. Degenerative chondrocalcinosis of the medial and lateral menisci is seen. There is mild degenerative spurring of the patellofemoral joint compartment. No acute fracture or dislocation or lytic process is seen. Small right knee joint effusion is seen. 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 Electronically signed by: Mike Zarate MD (06/02/2019 5:09 PM) [id number]
== END | disposition home or self-care (01) ==
LOC: KCIC 11:37
PROVIDERS: ATTEND Physician Assistant Medical
DX: M17.11 Unilateral primary osteoarthritis, right knee (principal); M25.461 Effusion, right knee
CPT/HCPCS: 73562

== ENCOUNTER → 2019-06-06 | Outpatient (CLI) | payer MEDICARE ==
--- NOTE | 2019-06-06 17:05 | KCIC ---
Examination: 3 views of lumbar spine, 2 views of the sacrum and coccyx history: Low back pain, radiculopathy. COMPARISON: None available FINDINGS: Moderate intervertebral disc height loss identified in the lumbar spine likely degenerative changes. Osseous demineralization limits evaluation. Multilevel moderate bilateral neural foraminal narrowing identified. The alignment of the sacrum, coccyx grossly appears unremarkable. IMPRESSION: Degenerative changes lumbar spine. If pain persists consider MRI Electronically signed by: Jimbo Barnes MD (06/06/2019 5:02 PM) [id number]
== END | disposition home or self-care (01) ==
LOC: KCIC 14:48
PROVIDERS: ATTEND Physician Assistant Medical
DX: M48.061 Spinal stenosis, lumbar region without neurogenic claudication (principal); M47.26 Other spondylosis with radiculopathy, lumbar region
CPT/HCPCS: 72100; 72220

== ENCOUNTER → 2019-06-12 | Outpatient (CLI) | payer MEDICARE ==
--- NOTE | 2019-06-12 15:12 | KCIC ---
MRI of the lumbar spine without contrast 06/12/2019 CLINICAL HISTORY: Low back pain which radiates down the right leg. TECHNIQUE: Unenhanced T1-weighted and T2-weighted sagittal and axial and inversion recovery sagittal images of the lumbar spine were obtained. FINDINGS: Comparison is made to radiographs of the lumbar spine dated 06/06/2019. Minimal S-shaped curvature of the thoracolumbar spine is seen. Degenerative signal changes are seen involving all of the disks of the lumbar spine. Degenerative signal changes are seen within the marrow surrounding these discs. The conus medullaris is normal morphology, position, and signal characteristics. Rounded high signal intensity lesions are seen involving both kidneys on the T2-weighted images. These measure 3 mm to 3 cm in size. They likely represent cysts. At the L1-2 disc space there is a mild to moderate generalized disc bulge. This is eccentric to the left. Degenerative changes are seen involving the facet joints bilaterally. There is moderate ligamentum flavum hypertrophy bilaterally. These findings when combined result in mild to moderate central spinal canal stenosis. No neural foraminal stenosis is seen. At the L2-3 disc space there is a mild generalized disc bulge. Degenerative changes are seen involving the facet joints bilaterally. There is mild ligamentum flavum hypertrophy bilaterally. These findings when combined result in mild central spinal canal stenosis. No neural foraminal stenosis is seen. At the L3-4 disc space there is a mild to moderate generalized disc bulge. Degenerative changes are seen involving the facet joints bilaterally. There is mild ligamentum flavum hypertrophy bilaterally. There are small facet joint effusions bilaterally. These findings when combined result in mild central spinal canal stenosis. No neural foraminal stenosis is seen. At the L4-5 disc space there is a mild generalized disc bulge. Superimposed on the disc bulge is a right lateral focal disc herniation. This extrudes superiorly. This measures 7 mm in AP diameter Degenerative changes are seen involving the facet joints bilaterally. There is moderate ligamentum flavum hypertrophy bilaterally. These findings when combined result in mild central spinal canal stenosis. Moderate to severe right neural foraminal stenosis is seen. The disc herniation appears to impinge upon the right L4 nerve root within the right neural foramen. The left neural foramen is patent. At the L5-S1 disc space there is a minimal generalized disc bulge. Degenerative changes are seen involving the facet joints bilaterally. These findings when combined do not result in significant central spinal canal or neural foraminal stenosis. IMPRESSION: The changes of degenerative disc disease are seen throughout the lumbar spine. These findings result in mild to moderate central spinal canal stenosis at L1-2 and mild central spinal canal stenosis at L2-3, L3-4 and L4-5. At the L4-5 disc space a right lateral focal disc herniation is seen which extrudes superiorly. This results in moderate to severe right neural foraminal stenosis and appears to impinge upon the right L4 nerve root within the right neural foramen. Electronically signed by: Tuan Metcalf MD (06/12/2019 3:09 PM) [facility]-[id number]
== END | disposition home or self-care (01) ==
LOC: KCIC MRI 12:59
PROVIDERS: ATTEND Family Medicine
DX: M51.17 Intervertebral disc disorders with radiculopathy, lumbosacral region (principal); M51.16 Intervertebral disc disorders with radiculopathy, lumbar region; M48.061 Spinal stenosis, lumbar region without neurogenic claudication; M25.48 Effusion, other site
CPT/HCPCS: 72148

== ENCOUNTER → 2019-08-09 | Outpatient (CLI) | payer MEDICARE ==
[~2019-08-09] MED LIST changes: +ATOR20TA58 PO; +BUPIVACAINE MPF 0.25% 10 ML VIAL. ONE; +HYDR-2145 PO; +IOHEXOL 180 MG/ML 10 ML VIAL. ONE; +PIOG30TA41 PO; +methylPREDNISolone ACETATE 80 MG/ML VIAL. ONE
--- NOTE | 2019-08-09 13:50 | PAIN ---
DATE OF SERVICE: 08/09/2019 INITIAL CONSULTATION FOR PAIN CLINIC CHIEF COMPLAINT: Low back and right lower extremity pain. HISTORY OF PRESENT ILLNESS: This is a 74-year-old male, who presents with history of pain for about 4 months, not the result of any specific injury or accident he is aware of but has been increasing with pain in the low back and right lower extremity radiating to posterolateral thigh, anterior thigh, anterior medial thigh, and medial and lateral lower leg into the calf and ankle on the right side. The patient reports it is becoming more constant, sharp, and intermittent in intensity but always present and changes during the day with walking, standing, and worse with activity. The patient reports it is radiating, burning in the back and the right leg, mostly in the lateral and anterior thigh. The patient reports he does have a walker or a scooter he uses occasionally but only if he is going to be travelling longer distances, does not have these with him today. The patient reports the pain is awakening him from sleep at least once or twice a night, does not affect his bowel or bladder control but does affect his ability to walk fairly significantly. The patient had a trigger point injection in his primary care's office which was not helpful in the right posterior hip. He has been taking hydrocodone, which does decrease the pain to a moderate extent. He is doing some stretching and strengthening on his own. No formal physical therapies at this point or other chiropractic treatments or other modalities. No significant pain noted on the left side. The patient did have MRI scan of the lumbar spine showing at L4-L5 mild generalized disk bulge with a superimposed right lateral focal disk herniation extruding superiorly measuring 7 mm in AP diameter with moderate ligamentum flavum hypertrophy making mild central spinal canal stenosis, [id number] right neural foraminal stenosis seen with disk herniation appearing to impinge upon the right L4 nerve root within the right neural foramen. The patient rates his disability rating from 0-10, 10 being the worst, 3 with family and home responsibilities, 6 with recreation, 5 with social activity, 9 with occupation, 7 with sexual behavior, 2 with self-care, and 1 with life support activities. PAST MEDICAL HISTORY: Significant for hearing loss, type 2 diabetes, melanoma, hypertension, dizziness, and arthritis. PAST SURGICAL HISTORY: Previous surgeries include cataract extraction bilaterally and right thigh abscess incision and drainage. CURRENT MEDICATIONS: Include atorvastatin, amlodipine, hydrochlorothiazide, pioglitazone, metformin, vitamin B12, and allopurinol. ALLERGIES: The patient has no known drug allergies. FAMILY HISTORY: Significant for hypertension and hypercholesterolemia. SOCIAL HISTORY: The patient drinks about 1 beer a week or less, does not smoke, denies any illegal, illicit, or recreational drugs. He is , lives with his spouse, and lives locally in [place], [place]; reports he is currently retired. REVIEW OF SYSTEMS: The patient's review of systems is positive for those items mentioned in history of present illness. All systems reviewed and otherwise negative. It is complete, full, and well documented on the patient's chart. PHYSICAL EXAMINATION: VITAL SIGNS: The patient's blood pressure is 176/89, pulse is 77, respirations 16, temperature 98.1 degree Fahrenheit, height is 5 feet 10 inches, and weight is 306 pounds. GENERAL: The patient is awake, alert, oriented, appropriate, very pleasant demeanor. HEENT: Shows normocephalic, atraumatic. Extraocular movements are intact and symmetrical. Oral cavity: Mucous membranes are moist and pink. Dentition is intact. NECK: Shows anterior throat supple without palpable lymphadenopathy noted. Swallow reflex is symmetrical. CHEST: Shows normal on inspection. Breath sounds are clear to auscultation bilaterally. HEART: Shows S1, S2 clear. No murmurs are auscultated. ABDOMEN: Obese, soft, nontender, nondistended. No palpable organomegaly is noted. No rebound or guarding demonstrated. BACK: Shows spine grossly in the midline, slightly raised thoracic kyphosis, normal cervical lordotic curvature and lumbar lordotic curvature. Lumbar paraspinous muscle shows symmetrical on inspection; on palpation, he has some moderate tenderness diffusely bilaterally going diffusely without significant radiation. The patient's back shows good rotational motion both laterally greater than 10 degrees right and left as well as extension greater than 10 degrees, forward flexion 45 degrees without significant pain reported. The patient shows no tenderness over his spinous processes, sacrum, or sacroiliac regions with direct palpation. EXTREMITIES: The patient's lower extremities show deep tendon reflexes at 1+ in the patellae and tendo-calcaneus tendons equal. Motor examination is strong with 5/5 dorsiflexion and extension on the left but 4/5 on the right with ankle extension and flexion. Quadriceps and hamstring flexion are 5/5 bilaterally. Peripheral pulses are 1+ posterior tibia. No peripheral edema is noted bilaterally. Lower extremities are warm and dry to touch, equal in color and appearance. Seated straight leg raise is noted to be negative for reproduction of radicular symptoms in both right and left lower extremity. Gaenslen and Héctor maneuvers are negative bilaterally as well. The patient is able to stand, stand on his toes, without significant difficulty or loss of balance; walks with favoring gait. He is favoring the right lower extremity fairly significantly with ambulating but not using any assistive devices that he has with him in the clinic today. SKIN: Shows warm and dry, good turgor. No edema. No sores, rashes, or bruising with exception of some skin grafting on the nose and forehead. IMPRESSION: 1. This is a 74-year-old male with approximately a 4-month history of low back and right lower extremity pain in a radicular fashion. 2. MRI scan of lumbar spine as noted. 3. Type 2 diabetes. 4. Arthritis. 5. Hypertension. PLAN: Options were discussed with the patient including conservative medical management, physical therapies, and interventional techniques. We discussed a right-sided L4-L5 transforaminal injection using description as well as anatomical models to describe the procedure. Risks were then discussed including but not limited to bleeding, infection, possibility of epidural hematoma, subsequent neurological compromise, dural puncture, headaches, spinal cord and/or nerve damage, side effects of steroid medication, possible injection into the vertebral artery at that level, and permanent ischemic damage as well as poor results regarding pain control. The patient understands and wished to proceed. The patient will return to the clinic in approximately 2 weeks for followup. He was counseled as to return appointment, activity level, and side effects to be aware of. DIAGNOSES: Lumbar radiculopathy with lumbar degenerative disk disease, lumbar spinal stenosis, and lumbar herniated disk. PROCEDURE: Lumbar right-sided L4-L5 transforaminal injection using C-arm fluoroscopic guidance under sterile prep and drape using local anesthetic. MEDICATION INJECTED: A total of 2 mL of 0.25% bupivacaine and 80 mg Depo-Medrol with negative uptake of contrast on digital subtraction, good spread medially into the epidural space as well as laterally along the nerve root. CONDITION AT DISCHARGE: Stable. The patient tolerated procedure well and had no complications. The patient was discharged under his own power. JANUSZ MCKEON MD DR: MIGUEL/bernarda JOB#: [id number] / [id number]
== END ==
LOC: PNCL 10:59
PROVIDERS: ATTEND Anesthesiology
DX: M51.16 Intervertebral disc disorders with radiculopathy, lumbar region (principal); M48.061 Spinal stenosis, lumbar region without neurogenic claudication; E11.9 Type 2 diabetes mellitus without complications; I10 Essential (primary) hypertension; Z87.39 Personal history of other diseases of the musculoskeletal system and connective tissue; Z98.42 Cataract extraction status, left eye; Z98.41 Cataract extraction status, right eye; Z98.890 Other specified postprocedural states; Z72.89 Other problems related to lifestyle; Z96.1 Presence of intraocular lens; Z79.84 Long term (current) use of oral hypoglycemic drugs
CPT/HCPCS: 64483; J1040; J3490; Q9965

== ENCOUNTER → 2019-11-23 | Outpatient (CLI) | payer MEDICARE ==
[~2019-11-23] MED LIST changes: -ASCO500T2 PO; +ASCO500T4 PO; -BUPIVACAINE MPF 0.25% 10 ML VIAL. ONE; -IOHEXOL 180 MG/ML 10 ML VIAL. ONE; +IOHEXOL 300 MG/ML 100ML VIAL. IV ONE; -methylPREDNISolone ACETATE 80 MG/ML VIAL. ONE
--- NOTE | 2019-11-23 17:08 | KCIC ---
Examination: CT ANGIO LOWER EXTREMITY BILAT History: Reason: BILATERAL LOWER EXTREMITY EDEMA, CLAUDICATION / Spl. Instructions: OMNI 300 100ML / History: Comparison/Correlation: None Findings: Axial images were obtained following IV contrast and compared to arteriography protocol from the level of the infrarenal abdominal aorta to the distal metatarsal bones. Examination is limited due to suboptimal opacification of contrast at the distal external iliac arteries bilaterally and more distally to the feet. Evaluation at the calf levels is in particular limited. Sagittal and coronal reformatted images were provided. 3-D, MIPS images were provided. Incidental note is made of bilateral renal cysts. Possibility of a mass lesion however is raised on the very first image of series 4 at the lateral aspect of the left kidney anteriorly. It is not fully included for this exam. Abdominal aorta and iliac arteries are normal with no significant atheromatous involvement. No distal infrarenal abdominal aortic aneurysm. Main renal arteries were not included in this exam. There does appear to be an accessory left renal artery which is only partially seen. Inferior mesenteric artery opacifies normally with contrast. Common femoral arteries are widely patent. Superficial femoral arteries bilaterally are probably patent although evaluation is somewhat limited. Profunda femoris artery bilaterally is unremarkable. Popliteal arteries bilaterally appear unremarkable. Evaluation of the tibialis anterior, peroneal, posterior tibial, and tibioperoneal trunks bilaterally as fairly limited. Opacification of these vessels is seen. Dorsalis pedis appears opacified with contrast well. Extensive subcutaneous edema is noted involving the calves bilaterally. Subcutaneous edema is not seen involving the thighs. There is opacification of varicose veins and other subcutaneous veins bilaterally involving the calves. No suspicious bony process identified. Hip joints are symmetric. Narrowing of the medial compartments bilaterally seen. Tibiotalar joints are unremarkable. Impression: No significant stenosis is identified involving the arterial vasculature from the distal infrarenal abdominal aortic level to the common femoral arterial levels. Evaluation more distally however is limited especially in the region of the calves. No definite stenosis is seen on this limited exam. Marked subcutaneous edema involving the calves bilaterally is noted. Possibility of a mass lesion is questioned along the left kidney anterolaterally. It is not fully included for purposes of this exam. Consider further evaluation with CT of the kidneys without and with contrast. PQRS Compliance Statement: One or more of the following individualized dose reduction techniques were utilized for this examination: 1. Automated exposure control 2. Adjustment of the mA and/or kV according to patient size 3. Use of iterative reconstruction technique Electronically signed by: Francisco Miranda MD (11/23/2019 5:06 PM) [id number]
== END ==
LOC: KCIC CT 12:40
PROVIDERS: ATTEND Physician Assistant Medical
DX: I83.93 Asymptomatic varicose veins of bilateral lower extremities (principal); I12.9 Hypertensive chronic kidney disease with stage 1 through stage 4 chronic kidney disease, or unspecified chronic kidney disease; N28.1 Cyst of kidney, acquired; R60.0 Localized edema; I73.9 Peripheral vascular disease, unspecified; N18.9 Chronic kidney disease, unspecified
CPT/HCPCS: 73706; 82565; Q9967

== ENCOUNTER → 2019-12-28 | Outpatient (CLI) | payer MEDICARE ==
[~2019-12-28] MED LIST changes: -IOHEXOL 300 MG/ML 100ML VIAL. IV ONE
--- NOTE | 2019-12-28 15:49 | KCIC ---
Bilateral renal ultrasound without comparison for right middle cyst, left kidney mass, abnormal MRI of the lumbar spine in May. TECHNIQUE AND FINDINGS: Real-time grayscale and color Doppler evaluation of the kidneys and urinary bladder is performed. The urinary bladder is fluid distended and grossly unremarkable. The right kidney measures 11.4 x 4.6 x 5.4 cm and the left measures 13.4 x 6.4 x 7 cm. There is no hydronephrosis or perinephric fluid around either kidney. There is a single simple appearing 3 cm exophytic renal cyst on the right and there are at least 4 small simple appearing cysts on the left, largest which measures 2.6 cm. No further follow-up of any be simple cysts is recommended. No suspicious renal masses are evident. IMPRESSION: 1. Multiple bilateral simple renal cysts for which no additional follow-up is recommended. Electronically signed by: Connor Nix MD (12/28/2019 3:47 PM) [id number]
== END ==
LOC: KCIC US 14:30
PROVIDERS: ATTEND Physician Assistant Medical
DX: N28.1 Cyst of kidney, acquired (principal)
CPT/HCPCS: 76770

== ENCOUNTER → 2020-05-31 | Outpatient (CLI) | payer MEDICARE ==
[~2020-05-31] MED LIST changes: +AMLO-186 PO; -AMLO5TAB10 PO
--- NOTE | 2020-05-31 13:27 | RAD ---
EXAM: Bilateral lower extremity venous reflux exam. HISTORY: Pain. TECHNIQUE: Sonographic imaging of the lower extremity veins was performed. COMPARISON: None. FINDINGS: The right greater saphenous vein measures 6.5 mm in caliber at the saphenofemoral junction and 7.5 mm in caliber within the proximal thigh the left greater saphenous vein measures 8.6 mm calib er at the saphenofemoral junction and 6.7 mm caliber in the proximal thigh. There is no evidence of g reater saphenous vein reflux. The right lesser saphenous vein measures 4.5 mm in caliber and there is 0.4 seconds of reflux at the level of the knee. This vessel is not seen within the calf and the left lesser saphenous vein is not seen due to small caliber or soft tissue edema. There is an incidental proximal right inguinal lymph node which demonstrates a benign fatty hilum and is likely physiologic or reactive. IMPRESSION: 1. Limited exam due to soft tissue edema. The left lesser saphenous vein is not seen in the right les ser saphenous vein is not well seen. There is reflux within the right lesser saphenous vein described above. 2. Bilateral greater saphenous vein caliber measurements. There is no evidence of greater saphenous v ein reflux. Electronically signed by: Soraya Caraballo MD (05/31/2020 1:24 PM) [id number]
--- NOTE | 2020-06-06 16:25 | CARD ---
MR#: [id number] Date of Study: 05/31/2020 Ordering Physician: ANAM ALCARAZ, Referring Physician: ANAM ALCARAZ Tech: Marixa Toure [facility] APPROVED REPORT EXAM: Two-dimensional and M-mode echocardiogram with Doppler and color Doppler. Other Information Quality : AverageHR: 92bpm Rhythm : NSRTechnically limited study due to body habitus. INDICATION Chest Pain RISK FACTORS Hypertension Hyperlipidemia 2D DIMENSIONS RVDd2.8 (2.9-3.5cm)Left Atrium(2D)4.0 (1.6-4.0cm) IVSd1.2 (0.7-1.1cm)Aortic Root(2D)3.3 (2.0-3.7cm) LVDd4.4 (3.9-5.9cm)LVOT Diameter2.5 (1.8-2.4cm) PWd1.3 (0.7-1.1cm)LVDs2.1 (2.5-4.0cm) FS (%) 53.4 %SV75.6 ml LVEF(%)84.5 (>50%) Aortic Valve AoV Peak Ed.215.6cm/sAoV VTI34.7cm AO Peak GR.18.6mmHgLVOT Peak Ed.159.0cm/s AO Mean GR.8mmHgAVA (VMAX)3.76cm2 Mitral Valve MV E Zqyntwld091.0cm/sMV DECEL OALJ299gj MV A Ybwvycoa40.9cm/sE/A Ratio1.1 Pulmonary Valve PV Peak Uzaobirj617.9cm/s Pulmonary Vein S1 Hshjrjcb42.0cm/sD2 Hhsynabw56.2cm/s PVa [id number] LEFT VENTRICLE The left ventricle is normal size. There is mild concentric left ventricular hypertrophy. The left ve ntricular systolic function is normal and the ejection fraction is within normal range. Estimated eje ction fraction 60-65%. There is normal LV segmental wall motion. Tissue Doppler imaging reveals mild left ventricular diastolic dysfunction. RIGHT VENTRICLE The right ventricle is normal size. The right ventricle is mildly hypertrophied. The right ventricula r systolic function is normal. ATRIA The left atrium is mildly dilated. The right atrium is mildly dilated. The interatrial septum is inta ct with no evidence for an atrial septal defect or patent foramen ovale as noted on 2-D or Doppler im aging. AORTIC VALVE The aortic valve is sclerotic with decreased leaflet motion. Doppler and Color Flow revealed no signi ficant aortic regurgitation. There is no significant aortic valvular stenosis. There is no aortic zeferino vular vegetation. MITRAL VALVE The mitral valve is normal in structure and function. There is no evidence of mitral valve prolapse. There is no mitral valve stenosis. Doppler and Color Flow revealed no mitral valve regurgitation note d. TRICUSPID VALVE The tricuspid valve is normal in structure and function. Doppler and Color Flow revealed no tricuspid valve regurgitation noted. There is no tricuspid valve stenosis. PULMONIC VALVE Doppler and Color Flow revealed no pulmonic valvular regurgitation. There is no pulmonic valvular freedric nosis. GREAT VESSELS The aortic root is normal in size. The IVC is normal in size and collapses >50% with inspiration. PERICARDIAL EFFUSION There is no evidence of significant pericardial effusion. Critical Notification Critical Value: No <Conclusion> The left ventricular systolic function is normal and the ejection fraction is within normal range. E stimated ejection fraction 60-65%. There is normal LV segmental wall motion. Signed by : Rajeev Hernandez, Electronically Approved : 06/06/2020 16:25:25
== END ==
LOC: US 12:23
PROVIDERS: ATTEND Internal Medicine Cardiovascular Disease
DX: R60.0 Localized edema (principal); I10 Essential (primary) hypertension
CPT/HCPCS: 93306; 93970

== ENCOUNTER → 2020-11-15 | Outpatient (CLI) | payer MEDICARE ==
[~2020-11-15] MED LIST changes: +BUPIVACAINE MPF 0.25% 10 ML VIAL. ONE; +FURO20TA3 PO; +HYDR-2765 PO; +IOHEXOL 180 MG/ML 10 ML VIAL. ONE; +POTA-163 PO; +methylPREDNISolone ACETATE 40 MG/ML VIAL. ONE; +methylPREDNISolone ACETATE 80 MG/ML VIAL. ONE
--- NOTE | 2020-11-15 10:45 | PDOC ---
Progress Note - Pain Clinic Date of Service: DOS: DATE: 11/15/20 TIME: 10:42 Diagnosis: Dx: Lumbar radiculopathy with lumbar degenerative disc disease lumbar spinal stenosis and lumbar herniated disc History or Present Illness: HPI: 75-year-old male returns for follow-up last seen August 09, 2019 patient underwent right-sided L4-5 transforaminal injection with about 95% improvement until the last month or so the pain began to return without any new injury or accident that he is aware of radiating the right lower extremity posterior gluteus lateral thigh anterior thigh medial thigh medial lower leg and lateral lower leg on the right side worse with walking standing changing positions better with sitting or laying down patient reports he been sleeping in a recliner which does help decrease the pain as well sitting in a recliner. Patient reports otherwise is a constant pain severe shooting stabbing cramping tight and radiating patient reports a 10 on scale 10 is worse over the past week 9 on average for its least is a 9 today. Patient reports no new motor or sensory deficits no bowel or bladder incontinence initially was doing much better doing all activities distance walking possible activities work activities travel with greater ease and comfort and sleeping better now the pain has returned. Physical Exam: VS: Blood pressure is 141/87 pulse 79 respirations 18 temperature 97.8 F height is 5 feet 10 inches weight is 296 pounds PE: PHYSICAL EXAMINATION: GENERAL: The patient is awake, alert, oriented, appropriate, very pleasant demeanor HEENT: Shows normocephalic, atraumatic. Extraocular movements are intact and symmetrical. Oral cavity: Mucous membranes moist and pink. NECK: Shows anterior throat supple without palpable lymphadenopathy noted. Swallow reflex symmetrical. CHEST: Shows normal on inspection. Breath sounds are clear bilaterally, distant but no rales rhonchi or wheezes auscultated. HEART: Shows S1, S2 clear. No murmurs auscultated. ABDOMEN: Soft, nontender, nondistended, obese. No palpable organomegaly is noted. BACK: Shows spine grossly in the midline. Normal-appearing cervical lordotic curvature. There is slightly increased thoracic kyphosis, some minor flattening of the lumbar lordotic curvature. Lumbar paraspinous muscles show symmetrical on inspection, on palpation shows some moderate tenderness diffusely throughout the upper, middle and lower distribution of the paraspinous muscles, but without specific trigger points, without radiation of pain. The patient has good rotational motion of the lumbar spine, both laterally as well as extension and flexion without significant difficulty. No tenderness over the spinous processes, sacrum or sacroiliac regions. EXTREMITIES: Lower extremities show deep tendon reflexes 1+ in the patellar and tendo calcaneus tendons. Motor exam is 4 on a scale of 5 with right dorsiflexion, extension, quadriceps and hamstring flexion and 5/5 on the left. Peripheral pulses are 1+ posterior tibial. No peripheral edema is noted bilaterally. Lower extremities are warm and dry to touch, equal in color and appearance. SKIN: Shows warm and dry, good turgor. No edema. No sores, rashes or bruising throughout. Procedure: Procedure: Options were discussed with the patient. Patient's old chart reviewed his current medication regimen updated current review of systems updated today as well. We will proceed with a right L4-5 transforaminal epidural steroid injection today with fluoroscopic guidance. Risks were discussed including but not limited to: Bleeding, infection, possibility of epidural hematoma and subsequent neurological compromise, dural puncture, headaches, spinal cord and/or nerve damage, potential injection to the vertebral artery at that level and permanent ischemic damage, side effects of steroid medication, and poor results regarding pain control. Patient understands and wished to proceed. Patient will return to the clinic in approximate 2 weeks for follow-up, was counseled as to return appointment activity level and side effects to be aware of. Medication Injected: Med Injected: Under sterile prep and drape patient was placed in prone position using C-arm fluoroscopic guidance to identify the L4-5 distribution oblique and slightly cephalad angled C arm. The right L4-5 target was identified and using lidocaine for anesthetizing the skin 22-gauge Martinez pencil point needle was then used to enter the skin and into the subcutaneous tissues using direct C-arm fluoroscopic guidance to guide the needle into the transforaminal aspect of the l right L4-5 vertebrae this was confirmed with lateral views showing the needle tip in the superior aspect of the paravertebral region. Aspiration was noted to be negative, -1.5 cc of contrast was then injected with good spread both medially into the epidural space as well as laterally along the nerve root without uptake and without distribution and uptake on digital subtraction. At this time, a solution containing 2 cc of 0.25% bupivacaine and 80 mg of Depo- Medrol was then injected. Needle was withdrawn and sterile bandage was applied. Patient tolerated procedure well had no immediate complications Condition at Discharge: Condition at Discharge: Condition at discharge stable, patient already procedure well and had no complications. JANUSZ MCKEON MD Nov 15, 2020 10:45
== END | disposition home or self-care (01) ==
LOC: PNCL 09:07
PROVIDERS: ATTEND Anesthesiology
DX: M51.16 Intervertebral disc disorders with radiculopathy, lumbar region (principal); M48.061 Spinal stenosis, lumbar region without neurogenic claudication; I10 Essential (primary) hypertension; E78.00 Pure hypercholesterolemia, unspecified; J45.909 Unspecified asthma, uncomplicated; E11.9 Type 2 diabetes mellitus without complications; Z87.891 Personal history of nicotine dependence; Z79.84 Long term (current) use of oral hypoglycemic drugs; Z79.899 Other long term (current) drug therapy; Z98.890 Other specified postprocedural states; Z72.89 Other problems related to lifestyle
CPT/HCPCS: 64483; J1040; J3490; Q9965; J1030

== ENCOUNTER → 2021-06-24 | Outpatient (CLI) | payer MEDICARE ==
[~2021-06-24] MED LIST changes: -BUPIVACAINE MPF 0.25% 10 ML VIAL. ONE; -DOXY100C2 PO; +DOXY100C3 PO; -IOHEXOL 180 MG/ML 10 ML VIAL. ONE; -methylPREDNISolone ACETATE 40 MG/ML VIAL. ONE; -methylPREDNISolone ACETATE 80 MG/ML VIAL. ONE
--- NOTE | 2021-06-24 12:17 | CARD ---
MR#: [id number] Date of Study: 06/24/2021 Ordering Physician: ANAM SIGALA, Referring Physician: Magalys JOHNSON: Josafat Morin [facility] APPROVED REPORT EXAM: Two-dimensional and M-mode echocardiogram with Doppler and color Doppler. Other Information Quality : FairHR: 81bpm Rhythm : NSR INDICATION RISK FACTORS Hypertension Obesity Family History 2D DIMENSIONS Left Atrium(2D)4.5 (1.6-4.0cm)IVSd1.3 (0.7-1.1cm) Aortic Root(2D)3.6 (2.0-3.7cm)LVDd5.2 (3.9-5.9cm) LVOT Diameter2.0 (1.8-2.4cm)PWd1.3 (0.7-1.1cm) LVDs2.9 (2.5-4.0cm)FS (%) 44.2 % SV97.0 mlLVEF(%)75.1 (>50%) Aortic Valve AoV Peak Ed.196.2cm/sAoV VTI38.8cm AO Peak GR.15.4mmHgLVOT Peak Ed.135.9cm/s LVOT VTI 28.37cmAO Mean GR.9mmHg AMBREEN (VMAX)1.80im7RNI (VTI)2.23cm2 Mitral Valve MV E Yztqgkvr77.1cm/sMV DECEL [id number] MV A Aofujlua72.5cm/sMV HFU23oq E/A Ratio0.9MVA (PHT)2.92cm2 TDI E/Lateral E'13.2E/Medial E'9.7 Pulmonary Valve PV Peak Ayigjpei940.3cm/sPV Peak Grad.5mmHg Tricuspid Valve TR P. Oiormqly549hz/sTR Peak Gr.28mmHg Pulmonary Vein S1 Mepqqcex09.4cm/sD2 Pexavzhu10.7cm/s LEFT VENTRICLE The left ventricle is normal size. There is mild concentric left ventricular hypertrophy. The left ve ntricular systolic function is normal. The ejection fraction is 60-65%. There is normal LV segmental wall motion. Transmitral Doppler flow pattern is Grade I-abnormal relaxation pattern. No left ventric le thrombus noted on this study. There is no ventricular septal defect visualized. There is no left v entricular aneurysm. There is no mass noted in the left ventricle. RIGHT VENTRICLE The right ventricle is normal size. There is normal right ventricular wall thickness. The right ventr icular systolic function is normal. ATRIA The left atrium is mildly dilated. The right atrium is mildly dilated. The interatrial septum is inta ct with no evidence for an atrial septal defect or patent foramen ovale as noted on 2-D or Doppler im aging. AORTIC VALVE The aortic valve is calcified but opens well. Doppler and Color Flow revealed no significant aortic r egurgitation. There is no significant aortic valvular stenosis. Calculated aortic valve area is 2.3 c m2 with maximum pressure gradient of 16 mmHg and mean pressure gradient of 9 mmHg. There is no aortic valvular vegetation. MITRAL VALVE The mitral valve is thickened but opens well. There is no evidence of mitral valve prolapse. There is no mitral valve stenosis. Doppler and Color-flow revealed trace mitral regurgitation. TRICUSPID VALVE The tricuspid valve is normal in structure and function. Doppler and Color Flow revealed trace tricus pid regurgitation. There is no tricuspid valve prolapse or vegetation. There is no tricuspid valve st enosis. PULMONIC VALVE The pulmonary valve is normal in structure and function. Doppler and Color Flow revealed no pulmonic valvular regurgitation. There is no pulmonic valvular stenosis. GREAT VESSELS The aortic root is normal in size. The ascending aorta is normal in size. The pulmonary artery is nor mal. The IVC is normal in size and collapses >50% with inspiration. PERICARDIAL EFFUSION There is no pleural effusion. There is no evidence of significant pericardial effusion. Critical Notification Critical Value: No <Conclusion> The left ventricular systolic function is normal. The ejection fraction is 60-65%. There is normal LV segmental wall motion. Transmitral Doppler flow pattern is Grade I-abnormal relaxation pattern. Trace mitral regurgitation. Trace tricuspid regurgitation. There is no evidence of significant pericardial effusion. Signed by : Anam Sigala, Electronically Approved : 06/24/2021 12:16:54
== END ==
LOC: ECHO 10:57
PROVIDERS: ATTEND Internal Medicine Cardiovascular Disease
DX: I08.0 Rheumatic disorders of both mitral and aortic valves (principal); I50.32 Chronic diastolic (congestive) heart failure
CPT/HCPCS: 93306; C8929